=== PATIENT | male | born 1985 | race African-American/Black ===

== ENCOUNTER 2017-10-18 10:46 | Emergency (ER) | payer SELFPAY ==
--- NOTE | 2017-10-18 11:44 | ER Document Report ---
ED General - General Chief Complaint: Abscess Stated Complaint: LEG PAIN Time Seen by Provider: 10/18/17 11:11 Mode of Arrival: Ambulatory Information source: Patient Notes: Patient presents emergency department with complaints of abscess to the crease of his right upper thigh/testicle. Patient reports symptoms started 2 days ago. Denies fever vomiting diarrhea. Denies history of MRSA. Patient does shave himself. Complains of pain. Declines pain medication at this time. TRAVEL OUTSIDE OF THE U.S. IN LAST 30 DAYS: No - HPI Onset: Other - 2 days ago Onset/Duration: Gradual Quality of pain: Achy, Other - sore Severity: Severe Pain Level: 4 Associated symptoms: None Exacerbated by: Denies Relieved by: Denies Similar symptoms previously: No Recently seen / treated by doctor: No - Related Data Allergies/Adverse Reactions: No Known Allergies Allergy (Verified 10/18/17 10:52) Past Medical History - General Information source: Patient - Social History Smoking Status: Never Smoker Chew tobacco use (# tins/day): No Frequency of alcohol use: Social Drug Abuse: None Family History: Malignancy Patient has suicidal ideation: No Patient has homicidal ideation: No - Medical History Medical History: Negative Renal/ Medical History: Denies: Hx Peritoneal Dialysis Musculoskeltal Medical History: Reports Hx Arthritis - neck Past Surgical History: Reports: Hx Orthopedic Surgery - ganglian cyst removed - Immunizations Hx Diphtheria, Pertussis, Tetanus Vaccination: Yes Review of Systems - Review of Systems Notes: Review HPI for review of systems., All other systems negative Physical Exam - Vital signs Vitals: Temp Pulse Resp BP Pulse Ox 98.5 F 87 18 120/71 97 10/18/17 10:55 10/18/17 10:55 10/18/17 10:55 10/18/17 10:55 10/18/17 10:55 - Notes Notes: PHYSICAL EXAMINATION: GENERAL: Well-appearing and in no acute distress HEAD: Atraumatic, normocephalic. EYES: Pupils equal round extraocular movements intact, sclera anicteric, conjunctiva are normal. ENT: nares patent, Moist mucous membranes. NECK: Normal range of motion, supple LUNGS: RR even/unlabored. HEART: Regular rate ABDOMEN: Soft, no tenderness. No guarding, no rebound EXTREMITIES: Normal range of motion, no pitting edema. No cyanosis. NEUROLOGICAL: Cranial nerves grossly intact. Normal sensory/motor exams. PSYCH: Normal mood, normal affect. SKIN: Warm, Dry, normal turgor, no rashes or lesions noted - Genitourinary Scrotum: Swelling - Right-sided tenderness swelling to right groin lateral side of right testicle. Course - Re-evaluation Re-evalutation: 10/18/17 11:42 Dr. Mccray consulted, and assessed patient. He Advises surgica consult. Dr. Rasheed called. He advises consult urology. Patient updated on pending ultrasound. 10/18/17 12:52 Contacted [facility] for urology consult. 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 Patient was instructed on medication. Patient was instructed on signs and symptoms of allergic reaction to sulfa. He verbalized understanding. He declines pain medication. Reports he does not like the way it makes him feel. He was instructed on warm compress, importance of fu and to return to ED for worsening symptoms. - Vital Signs Vital signs: Temp Pulse Resp BP Pulse Ox 98.0 F 80 18 118/65 100 10/18/17 14:28 10/18/17 14:28 10/18/17 14:28 10/18/17 14:28 10/18/17 14:28 - Diagnostic Test Radiology reviewed: Image reviewed, Reports reviewed - Diagnostic report text EXAM DESCRIPTION: U/S SCROTUM W/O DOPPLER COMPLETED DATE/TIME: 10/18/2017 12: 13 pm REASON FOR STUDY: TESTICULAR ABSCESS COMPARISON: None. TECHNIQUE: Dynamic and static grayscale images acquired of the localized site of clinical concern and recorded on PACS. Additional selected color Doppler and spectral images recorded. SITE OF CONCERN: Right groin LIMITATIONS: None. FINDINGS: SKIN AND SUBCUTANEOUS TISSUES: There is a 2.7 x 1.1 x 2.5 cm fluid collection in the inguinal crease of the right groin. There is marked surrounding hypervascularity of this fluid collection. DEEP SOFT TISSUES/MUSCLES: No masses. No fluid collections. No edema. VASCULAR: No increased or decreased vascularity. No occlusions. OTHER: No other significant finding. IMPRESSION: 2.7 cm abscess in the subcutaneous soft tissues of the right groin as described Discharge - Discharge Clinical Impression: Groin abscess Condition: Stable Disposition: HOME, SELF-CARE Instructions: Abscess ([facility]), Trimethoprim-Sulfa ([facility]), Warm Packs ([facility]) Additional Instructions: *You have been treated for an abscess *Take medication as prescribed *Monitor the site for signs of increasing infection such as increasing pain, redness, swelling, warmth *Apply warm compresses *Follow up with a urologist Friday *Return to ED for signs of increasing infection, worsening condition, changes, needs Prescriptions: Sulfamethoxazole/Trimethoprim [Bactrim Ds Tablet] 1 each PO BID #20 tablet Forms: Return to Work Referrals: [facility] [Provider Group] - Follow up in 3-5 days [facility] [Provider Group] - Follow up in 3-5 days
--- NOTE | 2017-10-18 12:34 | RADIOLOGY REPORT (SQ) ---
EXAM DESCRIPTION: U/S SCROTUM W/O DOPPLER COMPLETED DATE/TIME: 10/18/2017 12:13 pm REASON FOR STUDY: TESTICULAR ABSCESS COMPARISON: None. TECHNIQUE: Dynamic and static grayscale images acquired of the localized site of clinical concern an d recorded on PACS. Additional selected color Doppler and spectral images recorded. SITE OF CONCERN: Right groin LIMITATIONS: None. FINDINGS: SKIN AND SUBCUTANEOUS TISSUES: There is a 2.7 x 1.1 x 2.5 cm fluid collection in the ingui nal crease of the right groin. There is marked surrounding hypervascularity of this fluid collection . DEEP SOFT TISSUES/MUSCLES: No masses. No fluid collections. No edema. VASCULAR: No increased or decreased vascularity. No occlusions. OTHER: No other significant finding. IMPRESSION: 2.7 cm abscess in the subcutaneous soft tissues of the right groin as described. TECHNICAL DOCUMENTATION: JOB ID: [id number] [employer]- All Rights Reserved Reading location - IP/workstation name: [email or web address]
[2017-10-18] MEDS ORDERED: SULFAMETHOXAZOLE/TRIMETHOPRIM 800-160 MG TABLET PO ONE (14:10)
[2017-10-18 14:31] VITALS: BP 118/65
== END 2017-10-18 14:31 | disposition home or self-care (01) ==
LOC: ER 10:46
DX: L02.214 Cutaneous abscess of groin (principal)
CPT/HCPCS: 76870; 82962; 99284

== ENCOUNTER 2017-10-20 14:45 | Emergency (ER) | payer SELFPAY ==
[2017-10-20] MEDS ORDERED: OXYCODONE-ACETAMINOPHEN 5-325 MG TABLET PO ONE (16:30)
--- NOTE | 2017-10-20 16:38 | ER Document Report ---
HPI - HPI Pain Level: 4 Context: Patient is a 32-year-old male who returns emergency department complaining of right scrotal abscess. Patient states that he was seen here on October 18 and told to follow-up with urology today. Patient states that he was not able to secure an appointment to be seen today or tomorrow and due to the pain or came to the emergency department he denies any fevers or chills. He admits that it is localized to the right lateral side of his scrotum. Denies any pyuria, hematuria. Has been utilizing warm packs and taking Bactrim as prescribed. Patient is a current smoker. Denies any allergies Past Medical History - Social History Smoking Status: Never Smoker Chew tobacco use (# tins/day): No Frequency of alcohol use: None Drug Abuse: Marijuana Family History: Malignancy Patient has suicidal ideation: No Patient has homicidal ideation: No Renal/ Medical History: Denies: Hx Peritoneal Dialysis Musculoskeltal Medical History: Reports Hx Arthritis - neck Past Surgical History: Reports: Hx Orthopedic Surgery - ganglian cyst removed - Immunizations Hx Diphtheria, Pertussis, Tetanus Vaccination: Yes Vertical Provider Document - CONSTITUTIONAL Agree With Documented VS: Yes Notes: PHYSICAL EXAM Male : right scrotum with induration without central fluctuance, purulent drainage. Tenderness along the right scrotum without any evidence of edema ABDOMEN: Soft, nondistended, nontender. No guarding, rebound, or rigidity.. Bowel sounds present in all 4 quadrants. EXTREMITIES: Moves all 4 extremities spontaneously. No edema, radial and dorsalis pedis pulses 2/4 bilaterally. No cyanosis. NEUROLOGICAL: Alert and oriented x4. Normal speech. PSYCH: Normal affect, normal mood. SKIN: Warm, dry, normal turgor. No rashes or lesions noted. - INFECTION CONTROL TRAVEL OUTSIDE OF THE U.S. IN LAST 30 DAYS: No Course - Re-evaluation Re-evalutation: 10/20/17 16:37 Exam with evidence of folliculitis of the scrotum without any visible central fluctuance for superficial I&D. I was able to speak with Mehran at [facility] office who stated that they are able to make an appointment for him to be seen tomorrow October [address] at [address] Tam. 10/20/17 19:59 US: There appears to be right epididymitis. 2. There is a 2.7 x 1.1 x 2.5 cm heterogeneous mass in the right groin suggestive of an inflammatory mass/ abscess. Will adjust patient's antibiotics to include cover for strep and staph due to surrounding cellulitis. Low clinical suspicion for Collins's gangrene, orchitis. Patient pain well controlled. Emphasized importance of following up with urology tomorrow in [place]. Patient and his partner agree with plan. - Vital Signs Vital signs: Temp Pulse Resp BP Pulse Ox 97.8 F 78 16 122/63 97 10/20/17 14:59 10/20/17 14:59 10/20/17 14:59 10/20/17 14:59 10/20/17 14:59 Discharge - Discharge Clinical Impression: Groin abscess Condition: Good Disposition: HOME, SELF-CARE Instructions: Abscess ([facility]), MRSA Cellulitis ([facility]), Cephalexin ([facility]), Oral Narcotic Medication ([facility]) Prescriptions: Cephalexin Monohydrate [Keflex 500 mg Capsule] 500 mg PO Q6H 5 Days capsule Forms: Return to Work Referrals: THEA TAM MD [NO LOCAL MD] - Follow up tomorrow
--- NOTE | 2017-10-20 19:28 | RADIOLOGY REPORT (SQ) ---
EXAM DESCRIPTION: U/S SCROTUM W/DOPPLER COMPLETED DATE/TIME: 10/20/2017 7:08 pm REASON FOR STUDY: testicular pain and abscess COMPARISON: 10/18/2017 TECHNIQUE: Static and realtime porter scale imaging of the scrotum and testes. Selected color Doppler and spectral images recorded to document blood flow. LIMITATIONS: None. FINDINGS: RIGHT: TESTICLE: Normal size, 4 x 2.5 x 2.8 cm. Normal echotexture. Normal blood flow. No mass. EPIDIDYMIS: Enlarged. 4.3 x 1.6 x 1.3 cm. Small epididymal cyst. HYDROCELE OR VARICOCELE: No. HERNIA OR EXTRA-TESTICULAR MASS: No. OTHER: There is a 2.7 x 1.1 x 2.5 cm heterogeneous mass in the right groin. LEFT: TESTICLE: Normal size, 4 x 2.6 x 2.7 cm. . Normal echotexture. Normal blood flow. No mass. EPIDIDYMIS: Normal, 1.6 x 1 x 1 cm. HYDROCELE OR VARICOCELE: No. HERNIA OR EXTRA-TESTICULAR MASS: No. OTHER: No other significant finding. IMPRESSION: 1. There appears to be right epididymitis. 2. There is a 2.7 x 1.1 x 2.5 cm heterogeneous mass in the right groin suggestive of an inflammatory mass/ abscess. TECHNICAL DOCUMENTATION: JOB ID: [id number]- All Rights Reserved Reading location - IP/workstation name: [email or web address]
[2017-10-20] MEDS ORDERED: CEPHALEXIN 500 MG CAPSULE PO ONE (19:59)
[2017-10-20] MEDS ORDERED: HYDROCODONE/ACETAMINOPHEN 5-325 MG (6 TAB/ER DISP) PO PRN (20:03)
[2017-10-20 20:14] VITALS: BP 127/65
== END 2017-10-20 20:12 | disposition home or self-care (01) ==
LOC: ER 14:45
DX: L02.214 Cutaneous abscess of groin (principal); F17.200 Nicotine dependence, unspecified, uncomplicated
CPT/HCPCS: 76870; 93976; 99283

== ENCOUNTER 2019-06-06 17:16 | Emergency (ER) | payer SELFPAY ==
--- NOTE | 2019-06-06 17:32 | ER Document Report ---
ED Medical Screen (RME) - General Chief Complaint: Headache Stated Complaint: HEADACHE, HAVING SEIZURES A LOT Time Seen by Provider: 06/06/19 17:23 Mode of Arrival: Ambulatory Information source: Patient Notes: 33-year-old male presented to ED for complaint of headache. He states he has had 7 seizures this weekend. He states the one he had 35 to 40 minutes before come to the emergency room lasted about 5 minutes and then was confused for another 5 minutes. His significant other did witness the seizure and states that he has had some gagging but no vomiting. He states he was unconscious at least 5 minutes and then confused. He was diagnosed with epilepsy on December 12 of this year and has a neurologist in in [place]. He states most of his seizures are usually usually focal seizures but the ones yesterday were jerking and violent. His significant other states the seizure yesterday he woke up with him violently shaking in his head in a sock basket had fallen off the bed. Patient states since that seizure he is not felt right inside he just does not feel right. He states his last CAT scan was about a month and a half ago. He states he has had at least 3 or 4 CTs since December. I have greeted and performed a rapid initial assessment of this patient. A comprehensive ED assessment and evaluation of the patient, analysis of test results and completion of medical decision making process will be conducted by an additional ED providers. TRAVEL OUTSIDE OF THE U.S. IN LAST 30 DAYS: No - Related Data Allergies/Adverse Reactions: No Known Allergies Allergy (Verified 10/20/17 14:46) Past Medical History Renal/ Medical History: Denies: Hx Peritoneal Dialysis Musculoskeltal Medical History: Reports Hx Arthritis - neck Past Surgical History: Reports: Hx Orthopedic Surgery - ganglian cyst removed - Immunizations Hx Diphtheria, Pertussis, Tetanus Vaccination: Yes Physical Exam - Vital signs Vitals: Temp Pulse Resp BP Pulse Ox 97.7 F 76 18 147/69 H 100 06/06/19 17:23 06/06/19 17:23 06/06/19 17:23 06/06/19 17:23 06/06/19 17:23 Course - Vital Signs Vital signs: Temp Pulse Resp BP Pulse Ox 97.7 F 76 18 147/69 H 100 06/06/19 17:23 06/06/19 17:23 06/06/19 17:23 06/06/19 17:23 06/06/19 17:23
[2019-06-06 18:17] LABS: ABSOLUTE MONOCYTES (AUTO) 0.5 10^3/uL (0.1-1.4); BASOPHILS % (AUTO) 0.4 % (0-2); EOSINOPHILS % (AUTO) 0.3 % (0-6); HEMATOCRIT 46.9 % (37.9-51.0); HEMOGLOBIN 16.2 g/dL (13.5-17.0); LYMPHOCYTES % (AUTO) 36.1 % (13-45); MEAN CORPUSCULAR HEMOGLOBIN 32.3 pg (27.0-33.4); MEAN CORPUSCULAR HGB CONC 34.5 g/dL (32.0-36.0); MEAN CORPUSCULAR VOLUME 94 fl (80-97); MONOCYTES % (AUTO) 8.4 % (3-13); PLATELET COUNT 176 10^3/uL (150-450); RED BLOOD COUNT 5.01 10^6/uL (4.35-5.55); RED CELL DISTRIBUTION WIDTH 13.2 % (11.5-14.0); SEGMENTED NEUTROPHILS % (AUTO) 54.8 % (42-78); TOTAL CELLS COUNTED % (AUTO) 100 %; WHITE BLOOD COUNT 5.6 10^3/uL (4.0-10.5)
[2019-06-06 18:20] LABS: APPEARANCE,URINE CLEAR; BILIRUBIN,URINE NEGATIVE (NEGATIVE); COLOR,URINE YELLOW; GLUCOSE, URINE NEGATIVE (NEGATIVE); KETONES,URINE 20 mg/dL (NEGATIVE); PROTEIN,URINE NEGATIVE (NEGATIVE); URINE SPECIFIC GRAVITY 1.029; UROBILINOGEN,URINE NEGATIVE mg/dL (<2.0)
[2019-06-06] MEDS ORDERED: KETOROLAC TROMETHAMINE INJ/PF 30 MG/1 ML SDV IV ONE (18:26)
[2019-06-06 18:34] LABS: ALBUMIN 5.1 g/dL (3.5-5.0); ALKALINE PHOSPHATASE 81 U/L (38-126); ANION GAP 14 (5-19); ASPARTATE AMINO TRANSFERASE 20 U/L (17-59); BILIRUBIN,DIRECT 0.1 mg/dL (0.0-0.4); BILIRUBIN,TOTAL 0.6 mg/dL (0.2-1.3); BLOOD UREA NITROGEN 18 mg/dL (7-20); CALCIUM 9.6 mg/dL (8.4-10.2); CARBON DIOXIDE 24 mmol/L (22-30); CHLORIDE 102 mmol/L (98-107); GLUCOSE 82 mg/dL (75-110); POTASSIUM 4.2 mmol/L (3.6-5.0); TOTAL PROTEIN 8.4 g/dL (6.3-8.2)
[2019-06-06 18:44] LABS: URINE AMPHETAMINES SCREEN NEGATIVE; URINE BARBITURATES SCREEN NEGATIVE; URINE BENZODIAZEPINES SCREEN NEGATIVE; URINE COCAINE SCREEN NEGATIVE; URINE METHADONE SCREEN NEGATIVE; URINE PHENCYCLIDINE SCREEN NEGATIVE
[2019-06-06 18:46] LABS: URINE MARIJUANA (THC) SCREEN UNCONFIRMED POSITIVE
[2019-06-06] MEDS ORDERED: DIVALPROEX SODIUM 250 MG TABLET.DR PO ONE (21:06)
--- NOTE | 2019-06-06 21:09 | ER Document Report ---
ED General - General Chief Complaint: Seizure Stated Complaint: HEADACHE, HAVING SEIZURES A LOT Time Seen by Provider: 06/06/19 17:23 Mode of Arrival: Ambulatory TRAVEL OUTSIDE OF THE U.S. IN LAST 30 DAYS: No - HPI Notes: Patient is a 33-year-old male who presents emergency department for evaluation of an increase in frequency of seizures. The patient has had seizures since Ju ne of this year. They seem to be increasing in frequency. At first she was having what sound like to step sounds are focal seizures. His seizures have changed, now he is having intermittent grand mal seizures. Patient and his relate that he has had at least 100 seizures since diagnosis. He has been on Trileptal and Keppra since diagnosis. These have been increased, but he has never been on any different medications. He states he has been taking his medications as prescribed, not missing any dosages. He recently moved from the [facility], does not have a local neurologist. - Related Data Allergies/Adverse Reactions: No Known Allergies Allergy (Verified 10/20/17 14:46) Home Medications: Levetiracetam 500mg 3 tabs PO BID. Oxcarbazepine 300mg 2 tabs PO BID. Truvada for prophylaxis Past Medical History - General Information source: Patient - Social History Smoking Status: Never Smoker Frequency of alcohol use: None Drug Abuse: Marijuana Family History: Malignancy Patient has suicidal ideation: No Patient has homicidal ideation: No Neurological Medical History: Reports: Hx Seizures Renal/ Medical History: Denies: Hx Peritoneal Dialysis Musculoskeletal Medical History: Reports Hx Arthritis - neck Past Surgical History: Reports: Hx Orthopedic Surgery - ganglian cyst removed - Immunizations Hx Diphtheria, Pertussis, Tetanus Vaccination: Yes Review of Systems - Review of Systems Constitutional: No symptoms reported EENT: No symptoms reported Cardiovascular: No symptoms reported Respiratory: No symptoms reported Gastrointestinal: No symptoms reported Genitourinary: No symptoms reported Musculoskeletal: No symptoms reported Skin: No symptoms reported Neurological/Psychological: See HPI Physical Exam - Vital signs Vitals: Temp Pulse Resp BP Pulse Ox 97.7 F 76 18 147/69 H 100 06/06/19 17:23 06/06/19 17:23 06/06/19 17:23 06/06/19 17:23 06/06/19 17:23 - Notes Notes: Vital signs reviewed, please refer to chart. Head is normocephalic, atraumatic. Pupils equal round, reactive to light. Neck is supple without meningismus. Heart is regular rate and rhythm. Lungs are clear to auscultation bilaterally. Abdomen is soft, nontender, normoactive bowel sounds throughout. Extremities without cyanosis, clubbing. Posterior calves are nontender. Peripheral pulses are equal. Skin is warm and dry. Patient is awake, alert, oriented x3. Cranial nerves II - XII are grossly intact without focal neurological deficits. Strength is plus 5 out of 5 bilateral upper and lower extremities. Sensation is intact. Reflexes symmetrical. Intact [id number], rapid alternating movements, [id number]. Course - Re-evaluation Re-evalutation: 06/06/19 21:07 Patient presents emergency department for evaluation of increased frequency of seizures. The patient has had multiple CTs. He states he had MRIs. He did not have any significant head trauma with a seizure. He is just having increasing frequency. Laboratory investigations were ordered and found to be unremarkable. Keppra and Trileptal levels are of course pending at this time. Patient lanie ined stable throughout the course of his stay. He is neurologically at baseline. I spoke with Dr. Ordonez, on-call neurologist at [facility]. He states that at times the Trileptal has been known to increase seizure frequency, he recommends stopping this medication. He asks that the patient be started on Depakote 1000 mg twice daily. He will see him in the office as a follow-up. - Vital Signs Vital signs: Temp Pulse Resp BP Pulse Ox 97.7 F 76 17 110/74 98 06/06/19 17:23 06/06/19 17:23 06/06/19 20:01 06/06/19 20:00 06/06/19 20:01 - Laboratory Result Diagrams: 06/06/19 17:56 06/06/19 17:56 Laboratory results interpreted by me: 06/06/19 06/06/19 17:40 17:56 Total Protein 8.4 H Albumin 5.1 H Urine Ketones 20 H Discharge - Discharge Clinical Impression: Seizure Condition: Stable Disposition: HOME, SELF-CARE Instructions: Seizure, Known Epileptic ([facility]) Additional Instructions: Please stop taking the Trileptal immediately. Start Depakote, 1000 mg twice a day. Contacted Dr. Ordonez, neurologist in [place], for follow-up. His phone number is . If you have worsened or more frequent seizures, seizures that last longer than 5 to 7 minutes. Difficulty speaking or swallowing, or any other new or concerning symptoms, please return immediately to the emergency department for reevaluation.
[2019-06-06 21:17] VITALS: BP 116/76
== END 2019-06-06 21:23 | disposition home or self-care (01) ==
LOC: ER 17:16
DX: G40.409 Other generalized epilepsy and epileptic syndromes, not intractable, without status epilepticus (principal); Z79.899 Other long term (current) drug therapy; F12.10 Cannabis abuse, uncomplicated
CPT/HCPCS: 99284; 96374; 80183; 36415; 80177; 83690; 85025; 80053; 81001; 80307; J1885

== ENCOUNTER → 2019-06-11 | Emergency (ER) | payer SELFPAY ==
[~2019-06-11] MED LIST: LORAZEPAM INJ 2 MG/1 ML VIAL IV ONE; ONDANSETRON 4 MG TAB.RAPDIS PO ONE
[2019-06-11 16:17] LABS: ALBUMIN 4.5 g/dL (3.5-5.0); ALKALINE PHOSPHATASE 67 U/L (38-126); ANION GAP 9 (5-19); ASPARTATE AMINO TRANSFERASE 18 U/L (17-59); BILIRUBIN,DIRECT 0.1 mg/dL (0.0-0.4); BILIRUBIN,TOTAL 0.6 mg/dL (0.2-1.3); BLOOD UREA NITROGEN 14 mg/dL (7-20); CALCIUM 9.4 mg/dL (8.4-10.2); CARBON DIOXIDE 27 mmol/L (22-30); CHLORIDE 104 mmol/L (98-107); GLUCOSE 80 mg/dL (75-110); TOTAL PROTEIN 7.6 g/dL (6.3-8.2)
[2019-06-11 16:21] LABS: ABSOLUTE LYMPHOCYTES (AUTO) 1.4 10^3/uL (0.5-4.7); ABSOLUTE MONOCYTES (AUTO) 0.3 10^3/uL (0.1-1.4); ABSOLUTE NEUT (AUTO) 2.7 10^3/uL (1.7-8.2); BASOPHILS % (AUTO) 0.5 % (0-2); EOSINOPHILS % (AUTO) 0.4 % (0-6); HEMATOCRIT 43.8 % (37.9-51.0); HEMOGLOBIN 15.1 g/dL (13.5-17.0); LYMPHOCYTES % (AUTO) 31.6 % (13-45); MEAN CORPUSCULAR HEMOGLOBIN 32.3 pg (27.0-33.4); MEAN CORPUSCULAR HGB CONC 34.6 g/dL (32.0-36.0); MEAN CORPUSCULAR VOLUME 93 fl (80-97); MONOCYTES % (AUTO) 7.1 % (3-13); PLATELET COUNT 154 10^3/uL (150-450); RED BLOOD COUNT 4.69 10^6/uL (4.35-5.55); RED CELL DISTRIBUTION WIDTH 12.9 % (11.5-14.0); SEGMENTED NEUTROPHILS % (AUTO) 60.4 % (42-78); TOTAL CELLS COUNTED % (AUTO) 100 %; WHITE BLOOD COUNT 4.5 10^3/uL (4.0-10.5)
--- NOTE | 2019-06-11 17:58 | ER Document Report ---
Entered by VINNIE DALEY SCRIBE 06/11/19 1531 Acting as scribe for:CALLUM PAUL IV, MD ED Seizure - General Chief Complaint: Probable Seizure Stated Complaint: POSSIBLE SEIZURE Mode of Arrival: Wheelchair Information source: Patient Notes: This 33-year-old male patient presents to the emergency department today with complaints of multiple seizures prior to arrival. Patient has a very complicated seizure history, stating that on December 12 2018 his three year old niece and his seizures began that day. Patient reports that he "passed out after hearing this news, hit his head, and then began seizing". Patient reports since that day he has had multiple seizures daily and was told that his "epilepsy was woken up out of dormant" when he fell. Patient is followed by Dr. Jimmy Celeste MD at [facility] for his seizures. Patient reports that he recently moved to this area and he now has trouble getting back and forth to [place] for his appointments, adding that he missed his appointment yesterday. Patient was seen here 4 days ago for seizures and had some medication adjustments. Patient was taken off of the 600 mg of Trileptal altogether. He had 1000 milligrams of Depakote added and was kept on the 1500 mg of Keppra. - Related Data Allergies/Adverse Reactions: No Known Allergies Allergy (Verified 10/20/17 14:46) Past Medical History - General Information source: Patient - Social History Smoking Status: Current Every Day Smoker Cigarette use (# per day): Yes Frequency of alcohol use: Rare Drug Abuse: Marijuana Occupation: unemployed Lives with: Family Family History: Reviewed & Not Pertinent, Malignancy Neurological Medical History: Reports: Hx Seizures Musculoskeletal Medical History: Reports Hx Arthritis - neck Past Surgical History: Reports: Hx Orthopedic Surgery - ganglian cyst removed - Immunizations Hx Diphtheria, Pertussis, Tetanus Vaccination: Yes Review of Systems - Review of Systems Constitutional: No symptoms reported EENT: No symptoms reported Cardiovascular: No symptoms reported Respiratory: No symptoms reported Gastrointestinal: No symptoms reported Genitourinary: No symptoms reported Male Genitourinary: No symptoms reported Musculoskeletal: No symptoms reported Skin: No symptoms reported Hematologic/Lymphatic: No symptoms reported Neurological/Psychological: See HPI, Seizure -: Yes All other systems reviewed and negative Physical Exam - Vital signs Vitals: Temp Pulse Resp BP Pulse Ox 98.2 F 64 18 116/72 100 06/11/19 15:25 06/11/19 15:25 06/11/19 15:25 06/11/19 15:25 06/11/19 15:25 - Notes Notes: Physical Exam: General: Alert, appears well. HEENT: Normocephalic. Atraumatic. PERRL. Extraocular movements intact. Oropharynx clear. Neck: Supple. Non-tender. Respiratory: No respiratory distress. Clear and equal breath sounds bilaterally. Cardiovascular: Regular rate and rhythm. Abdominal: Normal Inspection. Non-tender. No distension. Normal Bowel Sounds. Back: No gross abnormalities. Extremities: Moves all four extremities. Upper extremities: Normal inspection. Normal ROM. Lower extremities: Normal inspection. No edema. Normal ROM. Neurological: Normal cognition. AAOx4. Normal speech. Psychological: Normal affect. Normal Mood. Skin: Warm. Dry. Normal color. Course - Re-evaluation Re-evalutation: 06/11/19 15:50 Call placed to [facility] - Vital Signs Vital signs: Temp Pulse Resp BP Pulse Ox 98.2 F 64 18 121/83 100 06/11/19 15:43 06/11/19 15:43 06/11/19 19:01 06/11/19 19:01 06/11/19 19:01 - Laboratory Result Diagrams: 06/11/19 15:39 06/11/19 15:39 - Consults DR KAUFMAN Time consulted: 17:35 Reason for consultation: 06/11/19 18:47 RECURRENT SEIZURES 06/11/19 18:[address] Kaufman, patient's neurologist at [facility]. He states the patient missed his appointment yesterday. He also stated that he believes that the patient needs to be admitted at [facility] for video EEG. He accepted the patient for transfer to his facility as soon as they have a bed available. - Transfer of Care Notes: 06/11/19 19:[address] HERNANDEZ Discharge - Discharge Clinical Impression: Seizure disorder Condition: Good Disposition: [facility] I personally performed the services described in the documentation, reviewed and edited the documentation which was dictated to the scribe in my presence, and it accurately records my words and actions.
[2019-06-13 00:48] VITALS: BP 128/82
== END | disposition short-term general hospital (02) ==
LOC: ER 15:14
DX: G40.909 Epilepsy, unspecified, not intractable, without status epilepticus (principal); F17.210 Nicotine dependence, cigarettes, uncomplicated
CPT/HCPCS: 99285; 96374; 36415; 80177; 85025; 80053; 80164; J2060; S0119